=== PATIENT | male | born 1965 | race Caucasian/White ===

== ENCOUNTER 2018-06-30 10:16 | Observation (INO) | payer OTHER, SELFPAY ==
[2018-06-30] VITALS (12 sets, daily range): BP systolic 106–149; BP diastolic 67–95; PULSE 71–101; RESP 11–19; TEMP 36–36.8; O2SAT 94–98; BMI 33.9; BMI 33.4
--- NOTE | 2018-06-30 10:39 | DI.RAD.S_ITS ---
PROCEDURE: XR HAND LT MIN 3V INDICATIONS: laceration to 3rd and 4th digit TECHNIQUE: 2 views of the left hand acquired. COMPARISON: None. FINDINGS: Bones: There are comminuted fractures of the 3rd and 4th distal phalanges. There is associated mild dorsal displacement and angulation of the predominant distal components. No definite articular extension. Carpal bones are normally aligned. No suspicious bony lesions. Soft tissues: There is soft tissue lacerations in the distal 3rd and 4th digits. 2 punctate densities are demonstrated medially within the soft tissues of the 3rd and 4th digits. IMPRESSION: 1. Comminuted fractures of the 3rd and 4th distal phalanges as described. 2. Soft tissue lacerations of the distal 3rd and 4th digits with punctate densities medially which may be within the soft tissues or the overlying dressing. Recommend correlation clinically for possible foreign bodies. Dictated by: Blayne Mcintyre M.D. on 06/30/2018 at 11:01 Approved by: Blayne Mcintyre M.D. on 06/30/2018 at 11:20
--- NOTE | 2018-06-30 11:33 | PC.NURSE ---
Cirilo sliced third and fourth digit on metal at work. Bone visible, bleeding upon arrival. patient denies any pain. Able to move fingers, CMS intact.
--- NOTE | 2018-06-30 12:36 | ED.WOUNDLAC ---
HPI - Wound/Laceration <KARTHIK Herrera - Last Filed: 07/01/18 00:26> General Chief Complaint: Wound/Laceration Stated Complaint: Severed two fingers, left hand Time Seen by Provider: 06/30/18 12:00 Source: patient Mode of arrival: ambulatory Limitations: no limitations History of Present Illness HPI narrative: Healthy 53-year-old male, presents from injury after dropping a she is still on his left hand work around 9:00 a.m. today. Laceration and deformities to distal 3rd and 4th fingers, bleeding was controlled with pressure dressing during time of incident. Associated 3/10 dull aching pain with made worse with movement. Denies numbness, loss of sensation in distal fingers, hand pain, dizziness, syncope, chest pain, shortness of breath. Patient is unsure when last T-dap was. Related Data Home Medications Medication Instructions Recorded Confirmed No Known Home Medications 06/30/18 06/30/18 Previous Rx's Medication Instructions Recorded cephalexin 500 mg PO TID #21 cap 06/30/18 oxycodone-acetaminophen 1 tab PO Q4HR PRN #30 tab 06/30/18 Allergies Allergy/AdvReac Type Severity Reaction Status Date / Time No Known Drug Allergies Allergy Verified 06/30/18 17:35 Review of Systems <KARTHIK Herrera - Last Filed: 07/01/18 00:26> Constitutional Denies chills, Denies fever(s), Denies lethargy and Denies weakness Eyes Denies change in vision and Denies loss of vision ENT Ears, Nose, Mouth, and Throat: Denies neck pain Cardiovascular Denies chest pain, Denies irregular heart rhythm, Denies lightheadedness, Denies palpitations, Denies dyspnea, Denies dyspnea on exertion and Denies orthopnea Respiratory Denies cough, Denies dyspnea, Denies dyspnea on exertion and Denies wheezing Gastrointestinal Gastrointestinal: Denies abdominal pain, Denies change in bowel habits, Denies diarrhea, Denies nausea and Denies vomiting Musculoskeletal Denies neck pain, Denies numbness, Denies stiffness and Denies tingling Integumentary/Breasts Reports wounds Neurologic Denies loss of vision, Denies numbness, Denies tingling and Denies weakness Endocrine Denies palpitations Hematologic/Lymphatic Denies easy bruising Allergic/Immunologic Denies wheezing PFSH <KARTHIK Herrera - Last Filed: 07/01/18 00:26> Social History household members: significant other Exam <KARTHIK Herrera - Last Filed: 07/01/18 00:26> Initial Vital Signs Initial Vital Signs: Vital Signs Temperature 98.2 F 06/30/18 10:35 Pulse Rate 82 06/30/18 10:35 Respiratory Rate 16 06/30/18 10:35 Blood Pressure 149/88 H 06/30/18 10:35 Pulse Oximetry 96 06/30/18 10:35 Const General: cooperative Nutritional Appearance: well nourished Orientation: alert, awake, oriented x3 and not confused Eyes General: appearance normal, both eyes and all related structures Eyelids: eyelids normal Conjunctivae: conjunctivae normal Sclera: sclerae normal Pupils: PERRL EOM: EOM intact bilaterally Neck Neck: normal visual inspection, trachea midline, No lymphadenopathy, No midline deformity and No JVD Lymphatic: No lymphedema Chest Chest: normal inspection of the chest Resp Effort & Inspection: normal respiratory effort, able to speak in complete sentences, no respiratory distress and no use of accessory muscles Auscultation: clear to auscultation bilaterally, no rales, no rhonchi and no wheezes Cardio Rate: regular rate Rhythm: regular rhythm Heart Sounds: no click, no gallops, no murmurs and no rubs Pulses: normal peripheral pulses Skin General: no rashes or lesions noted, No jaundice and No petechiae Neuro General: alert, oriented x3, gait normal and no focal motor deficits Speech: speech normal Extrem Left upper extremity: hand Details: neurosensory exam normal, tendon exam normal, tenderness, swelling (Third and 4th distal phalanges, sensation intact. Able to move all fingers.) and laceration (Gross deformities 2/3 and 4th distal phalanges, with lacerations acroos DIP folds on palmar side. Continued oozing of blood.); ROM of fingers abnormal Psych Appearance: well kempt Mental Status: mental status grossly normal Attitude: cooperative Thought Content: normal and suicidality Judgment: judgment good <Shalini Carrillo DO - Last Filed: 07/02/18 18:29> Initial Vital Signs Initial Vital Signs: Vital Signs Temperature 98.2 F 06/30/18 10:35 Pulse Rate 82 06/30/18 10:35 Respiratory Rate 16 06/30/18 10:35 Blood Pressure 149/88 H 06/30/18 10:35 Pulse Oximetry 96 06/30/18 10:35 Procedures <KARTHIK Herrera - Last Filed: 07/01/18 00:26> Laceration Repair L 3rd DIP: Site: hand (Left 3rd DIP joint ) Side (If applicable): left Size (cm): 3 Description: irregular and contaminated Depth: involves muscle layer Local Anesthetic: lidocaine 1% and bupivacaine 0.5% Amount of anesthesia used (mL): 5 Pre-repair: wound explored and irrigated extensively Skin layer closed with: nylon Size (cm): 4-0 Number of sutures: 7 Technique: simple, interrupted L4th DIP: Site: hand Side (If applicable): left Size (cm): 1.5 Description: linear and contaminated Local Anesthetic: lidocaine 1% and bupivacaine 0.5% Amount of anesthesia used (mL): 4 Pre-repair: wound explored Skin layer closed with: nylon Size (cm): 4-0 Number of sutures: 4 Technique: simple, interrupted Course <KARTHKI Herrera - Last Filed: 07/01/18 00:26> Course Narrative: Consulted Ortho at 1 cm, IV antibiotics given DT open fracture, Tdap updated as patient did not remember when last vaccination was. Sutures applied to the to attempt to control bleeding and realign sounds. Surgicel applied to stop the oozing, splint applied drain for sutures. Once orthopedist patient, she decided to take him to surgery. Orders Ordered: Discontinued Medications Bupivacaine HCl (Sensorcaine 0.25% (Pf)) 30 ml INJ NOW ONE Stop: 06/30/18 18:32 Last Admin: 06/30/18 18:31 Dose: 20 ml Cephalexin HCl (Keflex) 500 mg PO TID SHWETHA Diphtheria/Tetanus/Acell Pertussis (Adacel) 0.5 ml IM .ONCE ONE Stop: 06/30/18 12:27 Last Admin: 06/30/18 12:53 Dose: 0.5 ml Fentanyl (Sublimaze) 50 mcg IV Q5MIN PRN PRN Reason: Pain, Moderate (4-6) Hydromorphone HCl (Dilaudid) 0.5 mg IV Q5MIN PRN PRN Reason: Pain, Moderate (4-6) Cefazolin Sodium/Dextrose (Ancef) 2 gm in 100 mls @ 200 mls/hr IV NOW ONE Stop: 06/30/18 12:59 Last Admin: 06/30/18 20:05 Dose: 200 mls/hr Infusion: 06/30/18 15:26 Dose: 0 mls/hr Admin: 06/30/18 13:41 Dose: 200 mls/hr Lactated Ringer's (Lactated Ringers) 1,000 mls @ 42 mls/hr IV NOW ONE Stop: 07/01/18 17:36 Last Infusion: 06/30/18 20:58 Dose: 0 mls/hr Admin: 06/30/18 20:04 Dose: 42 mls/hr Infusion: 06/30/18 20:04 Dose: 42 mls/hr Admin: 06/30/18 17:49 Dose: 42 mls/hr Metoclopramide HCl (Reglan) 10 mg IV NOW PRN PRN Reason: Nausea And Vomiting Ondansetron HCl (Zofran) 4 mg IV NOW PRN PRN Reason: Nausea And Vomiting Oxycodone/Acetaminophen (Percocet 5/325) 1 tab PO Q4HR PRN PRN Reason: Pain, Moderate (4-6) Last Admin: 06/30/18 20:35 Dose: 1 tab Reevaluation(s) Reevaluation #1: Re-evaluated after sutures, slow bleeding continued, pressure dressing applied with Surgicel. Time: 15:00 Consultations Consultation #1: Dr. Tello Alvarez in ED, view x-rays and talking with patient, decided to take patient to the OR. Time: 16:56 Consultation #2: Patient staffed with Dr. Carrillo who agrees with plan of care. Vital Signs - 8 hr 06/30/18 17:40 06/30/18 19:55 06/30/18 20:00 Temperature 97.6 F 97.2 F L Pulse Rate 84 101 H 99 H Respiratory Rate 15 11 L 15 Blood Pressure 126/82 110/76 106/67 Pulse Oximetry 94 94 94 06/30/18 20:05 06/30/18 20:10 06/30/18 20:15 Temperature 97.1 F L Pulse Rate 87 92 H 90 Respiratory Rate 13 11 L 11 L Blood Pressure 116/79 119/85 147/95 H Pulse Oximetry 96 95 97 06/30/18 20:20 06/30/18 20:25 06/30/18 20:54 Temperature 96.8 F L 96.9 F L Pulse Rate 91 H 80 79 Respiratory Rate 11 L 15 15 Blood Pressure 142/90 H 127/83 124/80 Pulse Oximetry 98 95 94 06/30/18 21:15 Temperature 96.9 F L Pulse Rate 81 Respiratory Rate 15 Blood Pressure 135/95 H Pulse Oximetry 97 <Shalini Carrillo DO - Last Filed: 07/02/18 18:29> Orders Ordered: Discontinued Medications Bupivacaine HCl (Sensorcaine 0.25% (Pf)) 30 ml INJ NOW ONE Stop: 06/30/18 18:32 Last Admin: 06/30/18 18:31 Dose: 20 ml Cephalexin HCl (Keflex) 500 mg PO TID SHWETHA Diphtheria/Tetanus/Acell Pertussis (Adacel) 0.5 ml IM .ONCE ONE Stop: 06/30/18 12:27 Last Admin: 06/30/18 12:53 Dose: 0.5 ml Fentanyl (Sublimaze) 50 mcg IV Q5MIN PRN PRN Reason: Pain, Moderate (4-6) Hydromorphone HCl (Dilaudid) 0.5 mg IV Q5MIN PRN PRN Reason: Pain, Moderate (4-6) Cefazolin Sodium/Dextrose (Ancef) 2 gm in 100 mls @ 200 mls/hr IV NOW ONE Stop: 06/30/18 12:59 Last Admin: 06/30/18 20:05 Dose: 200 mls/hr Infusion: 06/30/18 15:26 Dose: 0 mls/hr Admin: 06/30/18 13:41 Dose: 200 mls/hr Lactated Ringer's (Lactated Ringers) 1,000 mls @ 42 mls/hr IV NOW ONE Stop: 07/01/18 17:36 Last Infusion: 06/30/18 20:58 Dose: 0 mls/hr Admin: 06/30/18 20:04 Dose: 42 mls/hr Infusion: 06/30/18 20:04 Dose: 42 mls/hr Admin: 06/30/18 17:49 Dose: 42 mls/hr Metoclopramide HCl (Reglan) 10 mg IV NOW PRN PRN Reason: Nausea And Vomiting Ondansetron HCl (Zofran) 4 mg IV NOW PRN PRN Reason: Nausea And Vomiting Oxycodone/Acetaminophen (Percocet 5/325) 1 tab PO Q4HR PRN PRN Reason: Pain, Moderate (4-6) Last Admin: 06/30/18 20:35 Dose: 1 tab Vital Signs - 8 hr 06/30/18 17:40 06/30/18 19:55 06/30/18 20:00 Temperature 97.6 F 97.2 F L Pulse Rate 84 101 H 99 H Respiratory Rate 15 11 L 15 Blood Pressure 126/82 110/76 106/67 Pulse Oximetry 94 94 94 06/30/18 20:05 06/30/18 20:10 06/30/18 20:15 Temperature 97.1 F L Pulse Rate 87 92 H 90 Respiratory Rate 13 11 L 11 L Blood Pressure 116/79 119/85 147/95 H Pulse Oximetry 96 95 97 06/30/18 20:20 06/30/18 20:25 06/30/18 20:54 Temperature 96.8 F L 96.9 F L Pulse Rate 91 H 80 79 Respiratory Rate 11 L 15 15 Blood Pressure 142/90 H 127/83 124/80 Pulse Oximetry 98 95 94 06/30/18 21:15 Temperature 96.9 F L Pulse Rate 81 Respiratory Rate 15 Blood Pressure 135/95 H Pulse Oximetry 97 MDM - Wound/Laceration <KARTHIK Herrera - Last Filed: 07/01/18 00:26> Differential Diagnosis Differential diagnosis: Likely laceration Medical Records Attestation: I reviewed the patient's medical records. Lab Data Attestation: I reviewed the patient's lab results. Imaging Data Left Hand : Radiologist's impression: [address] [address] XRay Report Signed Patient: Blayne Bowden Jr EMR#: [id number] : 1965Acct:[id number] Age/Sex: 53 / MDate of Service: 06/30/18 Loc: ED Accession Number: [id number] Procedure: XR hand LT min 3V Ordering Provider: Mank,Shalini C D.O. PROCEDURE: XR HAND LT MIN 3V INDICATIONS: laceration to 3rd and 4th digit TECHNIQUE: 2 views of the left hand acquired. COMPARISON: None. FINDINGS: Bones: There are comminuted fractures of the 3rd and 4th distal phalanges. There is associated mild dorsal displacement and angulation of the predominant distal components. No definite articular extension. Carpal bones are normally aligned. No suspicious bony lesions. Soft tissues: There is soft tissue lacerations in the distal 3rd and 4th digits. 2 punctate densities are demonstrated medially within the soft tissues of the 3rd and 4th digits. IMPRESSION: 1. Comminuted fractures of the 3rd and 4th distal phalanges as described. 2. Soft tissue lacerations of the distal 3rd and 4th digits with punctate densities medially which may be within the soft tissues or the overlying dressing. Recommend correlation clinically for possible foreign bodies. Dictated by: Blayne Mcintyre M.D. on 06/30/2018 at 11:01 Approved by: Blayne Mcintyre M.D. on 06/30/2018 at 11:20 MDM Narrative Medical decision making narrative: Patient's fractures and significant laceration prompted consultation to orthopedist. Discharge Plan Departure Patient Disposition: Admitted as Observation Clinical Impression: Open fracture of finger of left hand Discharge Date/Time: 06/30/18 17:01 Interventions: ED Discharge Assessment Last Done: 06/30/18 17:27 Admit Date/Time: 06/30/18 16:59 Admit Provider: Ame Alvarez <Shalini Carrillo DO - Last Filed: 07/02/18 18:29> Cosign ED Attending Cosignature Attestation: I was immediately available in the department for consultation, patient was evaluated by myself several times during stay prior to and after digital block, patient was neurovascularly intact but had deformity, attempted closure but unsuccessful while awaiting ortho consultation. IV antibiotics given, ring block placed bilateral fingers. Orthopedic surgery in department and took patient to OR. This documentation has been reviewed and I agree with assessment and plan. Supervised by Shalini Carrillo DO
[2018-06-30] MEDS: TET,DIPH,PERTUSS(ACELL),VAC/PF 0.5 ML SYRINGE IM (12:53)
[2018-06-30] MEDS: CEFAZOLIN 2 GM/100 ML FROZ.PIGGY IV ×2 (13:41→20:05)
--- NOTE | 2018-06-30 17:27 | P.HP_ITS ---
History of Present Illness Date Patient Seen: 06/30/18 Time Patient Seen: 17:09 Chief complaint: Severed two fingers, left hand Narrative: 53-year-old left-hand dominant gentleman who works at [employer] who got his left hand middle and ring finger caught between 2 plates noted the acute onset of pain and deformity of his fingers. He is left-hand dominant and does play the guitar and is anxious to attempt to maintain his normal as possible fingers. Has a previous history of a scaphoid fracture. Patient History Medical History No significant medical problems (Chronic) Family & Social History Safety & Behavioral: Feels Safe in Current Yes Environment Been Physically Hurt or No Threatened By a Person Meds Home Medications Medication Instructions Recorded Confirmed Type No Known Home Medications 06/30/18 06/30/18 History cephalexin 500 mg PO TID #21 cap 06/30/18 Rx oxycodone-acetaminophen 1 tab PO Q4HR PRN #30 tab 06/30/18 Rx Allergies Allergy/AdvReac Type Severity Reaction Status Date / Time No Known Drug Allergies Allergy Verified 06/30/18 17:35 Review of Systems Review of Systems Denies recent fever chills chest pain, any GI or respiratory symptoms Exam Vital Signs (past 8 hours): - 06/30/18 10:35 06/30/18 11:28 Temperature 98.2 F Pulse Rate 82 71 Respiratory Rate 16 19 Blood Pressure 149/88 H Blood Pressure [Right Arm] 141/86 H Pulse Oximetry 96 95 Oxygen Delivery Method Room Air Narrative Exam Narrative: HEENT is benign lungs are clear cor regular rate and rhythm abdomen soft and benign, left upper extremity shows complex laceration and finger tip injuries of the middle and ring finger with a crush injury. The tips do appear to be likely viable. There is also small injury to the 5th finger. Objective Labs Labs: Severely comminuted distal phalanx and tuft fractures of the left middle and ring fingers with marked comminution and gross deformity, non displaced distal tuft fracture small finger. Assessment & Plan Assessment & Plan narrative: Impression severe crush injury to the left hand distal phalanx of the middle and ring finger, soft tissue injury as well as severe bony involvement with near amputation. He also has a nondisplaced small finger tuft fracture and a laceration to his small finger. I have recommended emergent or urgent irrigation and debridement repair is needed with the plan for open reduction internal fixation likely with a K-wire of a severely comminuted distal phalanx fractures of his left ring and middle finger. Risks for ultimate tip necrosis and loss of length of his finger tip as well as need for possible amputation was discussed in detail. Risk for infection was discussed in detail. Need for anesthesia and possible anesthetic risks were also discussed. He is working multimedia production assistant I told him that if light duty is available we could allow him likely to go home today and probably return to work light duty tomorrow but he really can't do anything with his left upper extremity which is his dominant hand.
--- NOTE | 2018-06-30 17:27 | PM.OP.1 ---
Operative Date/Time/Diagnoses Date of procedure: 06/30/18 Time of procedure: 17:52 Pre-op diagnosis: Left middle finger distal phalanx severe crush injury and near traumatic amputation, left ring finger open severely comminuted distal phalanx fracture and near traumatic amputation, left small finger distal tuft fracture Post-op diagnosis: same Procedure & Clinicians Procedure: Open reduction internal fixation left middle and ring finger distal phalanx fracture and repair complex laceration left middle and ring fingers, closed reduction left small finger distal phalanx fracture Same procedure as scheduled: Yes Indications: This is a 53-year-old left-hand dominant gentleman who got his left hand crushed in an industrial injury at [employer] is brought to the operating room on an emergent basis for repair of complex finger tip injuries and open phalanx fractures of his distal phalanx of his middle and ring fingers. Surgeon: Ame Alvarez Operative Notes Findings: Severely comminuted fractures left middle and ring finger distal phalanx, complex volar wounds with contamination which was meticulously removed, intact flexor tendons but severe bone disruption. Closure Type: primary Specimen(s): none sent Prosthetic devices, grafts, tissues, transplants, or devices: Four 0.54 K-wires Estimated Blood Loss (mL): 20 Blood products transfused: none Procedure in detail: Patient was taken the operating room he underwent induction of a general anesthesia. His left upper extremity prepped draped standard sterile fashion. It was prepped and draped sterilely. Time-out was performed. The previously placed stitches were removed without difficulty. Both the middle and ring finger were meticulously irrigated and gently debrided. There was some gross contamination in both fingers. The finger was then carefully realigned. It was quite comminuted and the ring finger in particular was extremely difficult to reduce. Both fingers had severe comminution and marked shortening. The open fracture sites were meticulously irrigated and carefully debrided. The middle finger was reduced 1st and fixed with 2 0.54 K-wires. Acceptable overall alignment and stable initial fixation was achieved but marked comminution was noted. Next attention was directed to the ring finger. The ring finger had a significant amount of bone that was grossly displaced and was hyperflexed into the pulp space and angulated about 90? from anatomic reduction. I meticulously dissected down to the fracture site and then very gently each attempted to mobilize the distal tuft in the distal aspect of the finger without compromising the neurovascular structures. Combination of a [place] in very gentle traction as well as a reduction clamp eventually allowed acceptable overall reduction of the fracture fragment and then it was meticulously held and fixed with 2 K-wires. Overall alignment was achieved. The K-wires were then carefully cut and bent. The wounds were then loosely closed with interrupted nylon. Both rooms wounds were complex and stellate near circumferential and approximately 2 cm. The wound was dressed sterilely. Patient was placed in a short-arm splint and the K-wires were carefully protected. Dense digital block was performed. The small finger was carefully checked there was a tuft fracture and obvious bleeding underneath the nail bed but it was not grossly displaced and I opted for a simple closed reduction on the 5th finger. Complications: none Condition: stable Disposition: Acute Care Plan for aftercare: Distal tip protection. Keep dressing in place and dry. PO antibiotics. Return to clinic in about 5-7 days for a wound check application of a short-arm splint with extension to protect the tips of the middle ring and small finger.
[2018-06-30] MEDS: LACTATED RINGERS 1,000 ML 42 ML IV ×2 (17:49→20:04)
--- NOTE | 2018-06-30 18:23 | SUR.OPER ---
Supine on padded OR bed, head on pillow, right arm secured on padded arm boards at <90 degrees abduction, left arm on arm table under control of surgeon legs uncrossed, safety belt at thigh, tape over blanket over lower legs.
--- NOTE | 2018-06-30 18:27 | PC.NURSE ---
pt was taken to the OR by MD Alvarez at approx [id number]
[2018-06-30] MEDS: BUPIVACAINE 0.25% (PF) VIAL 30 ML INJ (18:31)
--- NOTE | 2018-06-30 20:08 | SUR.PHASEI ---
VERBAL ORDER RECEIVED FROM DR. DEJESUS TO GIVE TWO GRAMS OF CEFAZOLIN IV WHILE PT IN PACU.
[2018-06-30] MEDS: OXYCODONE/ACETAMINOPHEN 5/325 TABLET 1 TAB PO (20:35)
--- NOTE | 2018-06-30 20:41 | SUR.PHASEII ---
PT ARRIVED TO PHASE II VIA STRETCHER. PT SITTING UP AND DRINKING WATER. PT DENIES ANY PAIN/DISCOMFORT AT THIS TIME. BED IN LOWEST POSITION AND CALL LIGHT GIVEN TO PT. DRSG TO SURGICAL HAND C/D/I. PT AWAITING RETURN OF SIGNIFICANT OTHER FROM GETTING RX FILLED. PT APPEARS COMFORTABLE AT THIS TIME.
== END 2018-06-30 21:21 | disposition home or self-care (01) ==
LOC: ED 12:00 → AC 17:01
PROVIDERS: Admitting Provider Orthopaedic Surgery; Emergency Provider Nurse Practitioner; Visit Provider Orthopaedic Surgery
PROC: (CPT 26765; principal; 2018-06-30 17:45)
PROC: (CPT 26765; 2018-06-30 17:45)
DX: S62.633B Displaced fracture of distal phalanx of left middle finger, initial encounter for open fracture (principal); S62.635B Displaced fracture of distal phalanx of left ring finger, initial encounter for open fracture; S62.637A Displaced fracture of distal phalanx of left little finger, initial encounter for closed fracture; W31.82XA Contact with other commercial machinery, initial encounter; Y92.63 Factory as the place of occurrence of the external cause; Y99.0 Civilian activity done for income or pay; Z23 Encounter for immunization
CPT/HCPCS: 26765 ×2; 11012; 26755; 12042; 36591; 73130; 90471; 96361; 96365; 96366; 96372; 99283; 99284; G0378; 90715; J0690; J1100; J2704